=== PATIENT | female | born 1955 | race African-American/Black ===

== ENCOUNTER → 2016-05-20 | Outpatient (CLI) | payer MEDICARE, MEDICAID ==
--- NOTE | 2016-05-20 15:38 | WOMENS IMAGING REPORT ---
EXAM DESCRIPTION: BILAT SCREENING MAMMO W/CAD COMPLETED DATE/TIME: 05/20/2016 2:17 pm REASON FOR STUDY: ROUTINE SCREENING Z12.31 Z12.31 ENCNTR SCREEN MAMMOGRAM FOR MALIGNANT NEOPLASM OF BHARTI COMPARISON: 2008, 2013 TECHNIQUE: Standard craniocaudal and mediolateral oblique views of each breast recorded using [employer] acquisition. LIMITATIONS: None. FINDINGS: No masses, calcifications or architectural distortion. No areas of suspicion. Read with the assistance of CAD. [facility] - R2 Cenova Version 1.3 .[facility] - R2 Cenova Version 1.3 .[facility] - R2 Cenova Version 2.4 .[facility] - R2 Cenova Version 2.4 .[facility] - R2 [employer] Mechanic Version 9.2 BREAST DENSITY: d. The breasts are extremely dense, which lowers the sensitivity of mammography. BIRAD: 1 NEGATIVE RECOMMENDATION: ROUTINE SCREENING COMMENT: PATIENT NOTIFIED BY LETTER. The [employer] recommends an annual screening mammogram for women aged 40 years or over. Each patient will receive a reminder prior to the anniversary date of her mammogram. The [employer] (ACR) has developed recommendations for screening MRI of the breast s in certain patient populations, to be used in conjunction with mammography. Breast MRI surveillanc e may be appropriate for women with more than 20% lifetime risk of developing breast cancer as deter mined by genetic testing, significant family history of the disease, or history of mantle radiation f or Hodgkins Disease. ACR Practice Guidelines 2008. TECHNICAL DOCUMENTATION: FINDING NUMBER: (1) ASSESSMENT: (1) JOB ID: [id number] [employer]- All Rights Reserved
== END ==
LOC: WI 13:57
PROVIDERS: ATTEND Internal Medicine
DX: Z12.31 Encounter for screening mammogram for malignant neoplasm of breast (principal)
CPT/HCPCS: 77067; G0202

== ENCOUNTER → 2017-11-01 | Outpatient (CLI) | payer MEDICARE, MEDICAID ==
--- NOTE | 2017-11-01 13:21 | RADIOLOGY REPORT (SQ) ---
EXAM DESCRIPTION: CT SOFT TISSUE NECK WITHOUT COMPLETED DATE/TIME: 11/01/2017 12:02 pm REASON FOR STUDY: LOCALIZED SWELLING, MASS AND LUMP, NECK R22.1 LOCALIZED SWELLING, MASS AND LUMP, NECK COMPARISON: CT chest 04/22/2016 TECHNIQUE: Noncontrast scanning from skull base through lung apices with review of bone, soft tissue and lung windows. Reconstructed coronal and sagittal MPR images reviewed. All images stored on PAC S. All CT scanners at this facility use dose modulation, iterative reconstruction, and/or weight based d osing when appropriate to reduce radiation dose to as low as reasonably achievable (ALARA). [facility]: Dose Right [facility]: CareDose [facility]: Dose Right [facility]: Teradose 4D [facility]: peerTransfer RADIATION DOSE: 8.9 mGy. LIMITATIONS: None. FINDINGS: SKULL BASE: Noncontrast images of the inferior brain in the field of view unremarkable. MAJOR SALIVARY GLANDS: No solid or cystic masses. No inflammatory changes. LYMPHADENOPATHY: No adenopathy. MUCOSAL MASSES OR ASYMMETRY: No mucosal masses or asymmetry. LARYNX/CORDS: No abnormal findings. LUNG APICES: Clear. BONES: Dense bony sclerosis is present in the right clavicle, sternum, similar compared to 2016 CT ch est. New bony sclerosis in the C6 vertebral body compared to 2016. Question multifocal Paget's dise ase versus sclerotic metastatic disease THYROID: The right lobe thyroid is diffusely enlarged, 5.3 cm AP x 5.2 cm transverse by 6 cm cranioca udad. A 5 cm mass in the right lower pole thyroid is present. Left lobe thyroid normal size, withou t focal masses, 3.5 x 2 x 5 cm in size. PARANASAL SINUSES: Clear. OTHER: Advanced dental caries. 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 Interval develop ment of dense bony sclerosis in the C6 vertebral body since 2016 TECHNICAL DOCUMENTATION: JOB ID: [id number] Quality ID # [id number]: Final reports with documentation of one or more dose reduction techniques (e.g., Au tomated exposure control, adjustment of the mA and/or kV according to patient size, use of iterative reconstruction technique) 2010 [employer]- All Rights Reserved Reading location - IP/workstation name: [facility]
== END ==
LOC: RAD 13:30
PROVIDERS: ATTEND Internal Medicine
DX: R22.1 Localized swelling, mass and lump, neck (principal)
CPT/HCPCS: 70490; 82565

== ENCOUNTER → 2017-11-23 | Outpatient (CLI) | payer MEDICARE, MEDICAID ==
--- NOTE | 2017-11-23 13:08 | RADIOLOGY REPORT (SQ) ---
EXAM DESCRIPTION: BARIUM SWALLOW ESOPHAGUS COMPLETED DATE/TIME: 11/23/2017 9:56 am REASON FOR STUDY: DYSPHAGIA (R13.10) R13.10 DYSPHAGIA, UNSPECIFIED COMPARISON: CT soft tissue neck 11/01/2017 CT chest 04/22/2016 TECHNIQUE: Under fluoroscopic guidance, patient ingested effervescent granules followed by thick and thin barium. Fluoroscopic spot images and routine radiographic images acquired and stored on PACS. 12 MM BARIUM TABLET GIVEN: Yes No significant delay in passage. LIMITATIONS: None. FLUOROSCOPY TIME: FLUORO TIME: 2 minutes 59 seconds 10 series of digital images saved to PACS. FINDINGS: NEUROMUSCULAR COORDINATION OF SWALLOW: There is subglottic aspiration intermittently throu ghout the study. ESOPHAGEAL MOTILITY: There is narrowing of the cervical esophagus just above the thoracic inlet. Thi s correlates with thyromegaly seen on CT exam 11/01/2017. Esophageal motility and distensibility is o therwise unremarkable. ESOPHAGEAL MUCOSA: Normal mucosa without masses or ulceration. GASTRO-ESOPHAGEAL JUNCTION: No hiatal hernia. Unprovoked gastroesophageal reflux to the distal 3rd o f the esophagus NON-GI TRACT STRUCTURES: No significant finding. OTHER: No other significant finding. IMPRESSION: Subglottic aspiration of thin and thick liquid barium Narrowing of the upper cervical esophagus just above the thoracic inlet, likely from extrinsic compre ssion from enlarged thyroid gland No hiatal hernia. Mild distal gastroesophageal reflux COMMENT: Quality ID 145: Final reports for procedures using fluoroscopy that document radiation exp osure indices, or exposure time and number of fluorographic images (if radiation exposure indices are not available) TECHNICAL DOCUMENTATION: JOB ID: [id number] [employer]- All Rights Reserved Reading location - IP/workstation name: [facility]
== END ==
LOC: RAD 09:14
PROVIDERS: ATTEND Surgery
DX: R13.10 Dysphagia, unspecified (principal); K21.9 Gastro-esophageal reflux disease without esophagitis
CPT/HCPCS: 74220

== ENCOUNTER 2017-12-28 09:54 | Day surgery (SDC) | payer MEDICARE, MEDICAID ==
[2017-12-28] MEDS ORDERED: BUPIVACAINE HCL 0.5%/EPI 1:200000 INJ 1.8 ML CARTRIDGE ONE (11:11)
[2017-12-28] MEDS ORDERED: LIDOCAINE 2%/EPINEPHRINE INJ 1.7 ML CARTRIDGE ONE (11:11)
--- NOTE | 2017-12-28 11:36 | RADIOLOGY REPORT (SQ) ---
EXAM DESCRIPTION: SOFT TISSUE NECK COMPLETED DATE/TIME: 12/28/2017 11:13 am REASON FOR STUDY: PREOP K02.9 DENTAL CARIES, UNSPECIFIED COMPARISON: None. NUMBER OF VIEWS: Two views. TECHNIQUE: AP and lateral radiographic image of the soft tissues of the neck. LIMITATIONS: None. FINDINGS: EPIGLOTTIS: Normal. Contour normal. Aryepiglottic folds normal. PREVERTEBRAL SOFT TISSUES: Normal. No soft tissue swelling. SUBGLOTTIC AREA: Normal. No narrowing. RETROPHARYNGEAL SPACE: Normal. No soft tissue masses. BONES: Poor dentition with several missing teeth. LUNG APICES: Normal. OTHER: No radiopaque foreign body. No other significant finding. IMPRESSION: NEGATIVE STUDY OF THE SOFT TISSUES OF THE NECK. TECHNICAL DOCUMENTATION: JOB ID: [id number] [employer]- All Rights Reserved Reading location - IP/workstation name: [email or web address]
[2017-12-28] MEDS ORDERED: DEXAMETHASONE SOD PHOSPHATE INJ 4 MG/1 ML VIAL ONE (11:44)
[2017-12-28] MEDS ORDERED: ONDANSETRON HCL INJ/PF 4 MG/2 ML SDV ONE (11:44)
[2017-12-28] MEDS ORDERED: MIDAZOLAM 2 MG/2 ML INJ ONE (11:44)
[2017-12-28] MEDS ORDERED: FENTANYL CITRATE INJ/PF 100 MCG/2 ML AMPUL ONE (11:44)
[2017-12-28] MEDS ORDERED: PROPOFOL INJ 200 MG/20 ML VIAL IV ONE (11:45)
[2017-12-28] MEDS ORDERED: MORPHINE SULFATE 10 MG/ML INJ ONE (11:45)
[2017-12-28] MEDS ORDERED: PHENYLEPHRINE HCL 0.25% NASAL SPRAY 15 ML ONE (12:06)
[2017-12-28] MEDS ORDERED: MORPHINE SULFATE 10 MG/ML INJ IV PRN (12:25)
[2017-12-28] MEDS ORDERED: DIPHENHYDRAMINE HCL 50 MG/ML VIAL IV PRN (12:25)
[2017-12-28] MEDS ORDERED: FENTANYL CITRATE INJ/PF 100 MCG/2 ML AMPUL IV PRN ×3 (12:25)
[2017-12-28] MEDS ORDERED: MEPERIDINE HCL/PF INJ 25 MG/1 ML DISP.SYRIN IV PRN (12:25)
[2017-12-28] MEDS ORDERED: HYDROCODONE/ACETAMINOPHEN 5-325 MG TABLET PO PRN (13:54)
[2017-12-28] MEDS ORDERED: ONDANSETRON 4 MG TAB.RAPDIS PO PRN (13:55)
--- NOTE | 2017-12-28 13:57 | Operative Report ---
Operative Report DATE OF SURGERY: 12/28/17 Operative Report: preop dx: hopeless dentition postop dx: nahed surgeon: Nuno surgery performed: Extraction of remaining dentition and four quadrants of alveoloplasty material Forwarded to lab: N/A drains: none EBL: 20 ml Fluids: 700ml LR complications: none PREOPERATIVE DIAGNOSIS: Hopeless dentition with rampant decay and periodontal disease OPERATION: surgical extraction of teeth #4,5,6,7,8,9,10,11,12,14,15,16,19,20,21, 22,23,24,25,26,27,28,29;. Alveoloplasty of upper right, upper left, lower right , lower left quadrants SURGEON: KVNG RECINOS 1ST DIRECTOR FUNERAL: n/a 2ND Electronics Manufacturer: n/a TISSUE REMOVED OR ALTERED: Teeth # 4,5,6,7,8,9,10,11,12,14,15,16,19,20,21,22,23, 24,25,26,27,28,29 COMPLICATIONS: none ESTIMATED BLOOD LOSS: 20ml INTRAOPERATIVE FINDINGS: consistent with preop diagnosis of hopeles dentition, rampant decay and severe periodontal disease PROCEDURE: Patient taken to [facility] # 3. General anesthesia was induced via IV and gas inhalation agents. The patient was intubated in the right naries. Stable vital signs were obtained and care of the patient was turned over to the surgical team. A throat pack was placed and local anesthetic was administered in the upper and lower vestibules, bilateral palate, as well as obtaining bilateral inferior alveolar nerve blocks. Attention was directed to the patients upper right quadrant and a sulcular incision was performed from the distal of tooth # 4 to the mesial of tooth #8. A full thickness mucoperiosteal flap was performed. Elevators and forceps were then used to extract teeth #4, 5, 6, 7, 8, in the standard surgical fashion and rongeurs and bone files used to perform an aveoloplasty to smooth sharp daniella edges and remove undercuts. A similar procedure was performed on the lower right quadrant to remove teeth # 29, 28, 27, 26, 25. A running baseball suture was then placed in the upper right and lower right quadrants to reapproximate the soft tissues following copious sterile saline irrigation rinses. Attention was then directed to the upper left quadrant and once again a sulcular incision was performed for teeth 16, 15, 14, 12, 11, 10, 9. A full thickness mucoperiosteal flap was elevated and these teeth were extracted in the standard surgical fashion. Roguers and bone were utilized to perform an alveoloplasty of the upper left quadrant. Again, a similar procedure was performed on the lower left quadrant to surgically remove teeth # 19, 20, 21, 22, 23, 24. Alveoloplasty of the lower left quadrant was performed using the rongeurs and bone file. Copious sterile saline irrigation was used to flush all debri and a running baseball suture was used to reapproximate the soft tissues of both the upper left and lower right quadrants. The oral cavity was inspected and noted to be free of active bleeding or debri. The throat pack was removed and "Ghosty Gauze Packs" were made and inserted to control any residual bleeding. Care of the patient was returned to the anesthesia team and the patient was awakened and extubated without event. She was transported to the PACU in stable condition.
[2017-12-28 15:37] VITALS: BP 131/66
== END 2017-12-28 15:10 | disposition home or self-care (01) ==
LOC: OROUT 09:54
PROVIDERS: ATTEND Dentist Oral and Maxillofacial Surgery
DX: K02.9 Dental caries, unspecified (principal); K08.9 Disorder of teeth and supporting structures, unspecified; K05.6 Periodontal disease, unspecified; J44.9 Chronic obstructive pulmonary disease, unspecified; M19.90 Unspecified osteoarthritis, unspecified site; E03.9 Hypothyroidism, unspecified; M06.9 Rheumatoid arthritis, unspecified; G71.0 Muscular dystrophy; F17.210 Nicotine dependence, cigarettes, uncomplicated; M35.3 Polymyalgia rheumatica
CPT/HCPCS: 41899; 70360; 41874 ×4; J2250; J3490; J1100; J3010; A9270; J2405; J2704; 170; J2270